=== PATIENT | male | born 1970 | race African-American/Black ===

== ENCOUNTER 2020-07-09 22:16 | Emergency (ER) | payer OTHER ==
[~2020-07-09] VITALS: Ht 193 cm; Wt 104.3 kg
[2020-07-09] MEDS ORDERED: HYDROCHLOROTHIA25 MG ORAL (22:26)
[2020-07-09 22:34] VITALS: BP 135/92
[2020-07-09] MEDS ORDERED: Augmentin 875mg Tab ORAL ONE (22:45)
[2020-07-09] MEDS ORDERED: AUGMENTIN 875-1 EAC1 ORAL (22:45)
--- NOTE | 2020-07-09 22:45 | Emergency Room Report ---
History of Present Illness General Chief Complaint: Earache Source: Patient Present Illness HPI Is a 50-year-old male with no past medical history. He presents with complaint of right ear pain. Onset for last 2 days but does have some congestion and runny nose but no fever chills but no nausea no vomiting. Nothing made it better. Nothing made it worse. No trauma. No discharge. Allergies: Coded Allergies: No Known Allergies (Unverified , 07/09/20) COVID-19 Screening Contact w/high risk pt: No Experienced COVID-19 symptoms?: No COVID-19 Testing performed [employer]IAN: No Patient History Past Medical History: see triage record, old chart reviewed Past Surgical History: none Pertinent Family History: none Social History: Denies: smoking Immunizations: other Reviewed Nursing Documentation: PMH: Agreed; PSxH: Agreed Review of Systems Eye: Denies: eye pain, blurred vision ENT: Reports: ear pain; Denies: nose congestion, throat swelling Respiratory: Denies: cough, shortness of breath Cardiovascular: Denies: chest pain, palpitations Gastrointestinal: Denies: abdominal pain, diarrhea, nausea, vomiting Musculoskeletal: Denies: back pain, joint pain Skin: Denies: rash Neurological: Denies: headache, numbness Endocrine: Denies: increased thirst, increased urine Hematologic/Lymphatic: Denies: easy bruising All Other Systems: negative except mentioned in HPI Physical Exam Vital Signs Date Time Temp Pulse Resp B/P (MAP) Pulse Ox O2 Delivery O2 Flow Rate FiO2 07/09/20 22:20 97.0 105 22 135/92 (106) 95 Room Air Vitals unremarkable Sp02 EP Interpretation: reviewed, normal General Appearance: well appearing, no apparent distress, alert Head: normocephalic, atraumatic Eyes: bilateral eye PERRL, bilateral eye EOMI ENT: hearing grossly normal, normal pharynx, other - Right TM is dull with fluid. Loss of light reflex. Left TM has small amount of wax. Neck: full range of motion, supple, no meningismus Respiratory: chest non-tender, lungs clear, normal breath sounds Cardiovascular #1: regular rate, rhythm, no murmur Gastrointestinal: normal bowel sounds, non tender, no mass, no organomegaly, no bruit, non-distended Musculoskeletal: back normal, normal range of motion, gait/station normal Psychiatric: mood/affect normal Medical Decision Making Diagnostic Impression: Primary Impression: Right otitis media with effusion ER Course With otitis media with effusion. Probably secondary to a viral infection. He looks well. No evidence of mastoiditis or meningitis. No perforation. Will discharge home. Last Vital Signs Date Time Temp Pulse Resp B/P (MAP) Pulse Ox O2 Delivery O2 Flow Rate FiO2 07/09/20 22:34 97.0 85 22 135/92 95 Room Air Status: improved Disposition: HOME, SELF-CARE Condition: Stable Scripts Amoxicillin/Potassium Clav 875-125* (AUGMENTIN 875-125 TABLET*) 1 Each Tablet 1 TAB ORAL TWICE A DAY, #14 TAB Prov: Oleg Padron MD 07/09/20 Patient Instructions: Otitis Media, Adult, [id number] Additional Instructions: Follow-up with your doctor in 7 days for recheck. Return if worse. Oleg Padron MD Jul 09, 2020 22:45
[2020-07-09 22:48] VITALS: BP 135/92
== END 2020-07-09 22:50 | disposition home or self-care (01) ==
LOC: EMR 22:46
DX: H65.91 Unspecified nonsuppurative otitis media, right ear (principal)
CPT/HCPCS: 99282